=== PATIENT | female | born 1975 | race Caucasian/White ===

== ENCOUNTER → 2017-03-05 | Outpatient (CLI) | payer MEDICAID ==
[~2017-03-05] MED LIST: ANTIVERT25 MG PO; BUSPAR PO; CLONAZEPAM 1 MG1 M1 PO; CLONAZEPAM PO; COMBIVENT INH; DILAUDID 2 MG TA2 MG PO; DILAUDID 4 MG TA4 M1 PO; FLEXERIL PO; FLOVENT HFA 2220 MCG IH; HEADACHE FORMU1 EACH PO; HYDROCHLOROTHIA25 M1 PO; IBUPROFEN 800800 M1 PO; LISINOPRIL10 MG PO; LYRICA100 MG PO; METHADONE HCL 110 M1 PO; METHADONE HCL5 MG PO; NABUMETONE 750750 M1 PO; NORCO 10-325 T1 EAC1 PO; NORCO 10-325 T1 EACH PO; OPANA5 MG PO; PERCOCET 10-321 EAC1 PO; PERCOCET 10-321 EACH PO; PERCOCET 7.5-31 EAC1 PO; POTASSIUM20 PO; PRILOSEC 20 MG20 MG PO; RASPBERRY KETO100 MG PO; RELAFEN500 MG PO; SENNA-S TABLET1 EACH PO; SINGULAIR 10 MG10 M1 PO; ZANAFLEX4 MG PO; imitrex; topiramate
--- NOTE | 2017-03-07 09:59 | PAINCON ---
[address] [address] PAIN MANAGEMENT CONSULTATION Name: MARGOTH CABRAL Room: [facility] Mann#: [id number] Admission: 03/05/17 Attend Phys: Pedro Starr Discharge: Date of : 73 Report #: [id number] THIS REPORT FOR: //name// CC: Sixto Alvarez DATE OF SERVICE: 03/05/2017 HISTORY OF PRESENT ILLNESS: The patient is a 41-year-old female being treated for lumbar radiculopathy status post decompressive laminectomy, morbid obesity, myofascial pain requiring high risk complex medication management. Last seen in the pain clinic on 01/08/2017, continued on baseline medications. We did trigger point injections at that time. The patient returns to pain clinic today noting trigger point injections helped with right back and buttock pain. She has fallen twice in the past month. She has an AFO on the left foot, she states that lack of dorsiflexion in this foot may have contributed to that last fall, which did exacerbat pain in the right leg. She has had chronic left weakness status post her prior surgery. Tender in the low back, right greater than left, a little bit in the SI area as well. Positive MADIHA test bilaterally. Positive distraction and Gaenslen's test. We reviewed the fact that opiate medications are being used to provide analgesia adequate to support activities of daily living, not attempting to achieve a specific pain score on the 0-10 Visual Analog Scale. The current opiate medications are providing sufficient analgesia to allow the patient to participate in activities of daily living. The patient is not exhibiting any aberrant behavior suggestive of drug diversion. The patient is not having any adverse reactions to medications. The patient is not suffering from daytime somnolence or mental acuity changes. The patient is managing opiate-induced constipation with appropriate gdbx-cuy-helzsbm agents and dietary considerations. The patient was counseled on concern for caution with operating a motor vehicle while using opiate medications. A physical exam was performed and the patient's functional status was evaluated. All patients with back pain were advised against the bed rest greater than 4 days and were advised to return to normal activities. Pain score assessment was noted and the treatment plan was reviewed with the patient. All current medications, both prescribed and OTC were reviewed and reconciled on the electronic medical record. Tobacco screening was accomplished and smoking cessation was advised when indicated. BMI was noted and diet/exercise modification was recommended for all patients following outside normal parameters. I reviewed with the patient today their responsibilities to safeguard prescription medications, reviewed their responsibility [place] [address] PAIN MANAGEMENT CONSULTATION Name: MARGOTH CABRAL [id number] Admission: 03/05/17 Attend Phys: Pedro Starr Discharge: Date of : 74 Report #: [id number] only as prescribed by the physician. They are to seek and receive pain medications only from 1 physician group ([facility]). They are to use 1 pharmacy and keep the clinic informed if they change pharmacies. Their responsibilities include making followup visits in a timely fashion and to avoid abrupt discontinuation of medication usage. Their responsibilities further include bringing their medications (bottles from the pharmacy with residual pills) to the visit for possible confirmation of pill counts and the patient understands it is their responsibility to submit to random drug screens to ensure both that the medications prescribed are present, and that no other controlled substances are present. All prescriptions provided today were generated electronically. The patient rates subjective pain score 7 on a VAS. PHYSICAL EXAMINATION: GENERAL: Shows 5 feet 3 inches, 222 pounds female, BMI is 39 kilograms per meter squared. VITAL SIGNS: Blood pressure 134/61, pulse 79, respirations 16. MUSCULOSKELETAL: Rises from chair using armrest. Antalgic gait. Again decreased left dorsiflexion strength. Tender across the SI joints. Lumbar flexion is modestly limited. Positive MADIHA test. Straight leg raise is negative. ASSESSMENT: Symptomatic lumbar radiculopathy status post decompressive laminectomy, neuropathic pain, component of sacroiliac mediated pain at present. We did spend a prolonged visit today, greater than 25 minutes was spent with the patient. We reviewed the opiate consent to treat contract. We did obtain a buccal drug swab today. No aberrant behavior suggestive for drug diversion, simply complying with opiate consent to treat contract, last random drug screen was in April of last year. I talked about core strengthening for sacroiliac-mediated pain. We will tentatively plan on moving forward with bilateral sacroiliac joint injections in 2 weeks if sacroiliac-mediated pain does not improve with conservative care. Continue current medication unchanged including tizanidine 4 mg t.i.d., limit 75 tablets for 30 days. Continue methadone 5 mg 2 in the morning, 1 at noon, 2 at night, limit 150 tablets for 30 days. Consider weaning to 4 tablets a day at next visit. Continue Percocet 10/325 up to 4 tablets a day for breakthrough pain. Discharged in good and stable condition after moderately prolonged visit, [address] [facility] [address] [place] [address] PAIN MANAGEMENT CONSULTATION Name: MARGOTH CABRAL Room: [facility]#: [id number] Admission: 03/05/17 Attend Phys: Pedro Starr Discharge: Date of : 73 Report #: [id number] minutes was spent counseling the patient, reviewing therapeutic options and discussing need for sacroiliac joint injection at next visit. <ELECTRONICALLY SIGNED> By: Jonh Alvarez DO 03/07/17 0959 1216 1942Jonh Alvarez DO /nt
== END ==
LOC: M.PC 02:34
DX: M54.16 Radiculopathy, lumbar region (principal); E66.01 Morbid (severe) obesity due to excess calories; M79.1 Myalgia; M53.3 Sacrococcygeal disorders, not elsewhere classified; Z98.890 Other specified postprocedural states; Z79.899 Other long term (current) drug therapy

== ENCOUNTER → 2017-04-30 | Outpatient (CLI) | payer MEDICAID ==
--- NOTE | 2017-05-07 07:59 | PAINCON ---
[address] [address] PAIN MANAGEMENT CONSULTATION Name: MARGOTH CABRAL Room: [facility]#: [id number] Admission: 04/30/17 Attend Phys: Pedro Starr Discharge: Date of : 74 Report #: [id number] THIS REPORT FOR: //name// CC: Sixto Alvarez HISTORY OF PRESENT ILLNESS: The patient is a 41-year-old female being treated for lumbar radiculopathy, status post decompressive laminectomy, component of myofascial pain, SI-mediated pain, chronic complex medication management. Comorbidity includes morbid obesity, though the patient has lost a great deal of weight. Returns to pain clinic today, last visit was on 03/05/2017. Referred for physical therapy for core strengthening. She does wear an AFO on the left foot. She notes today that she is continuing to increase activity. She has been walking 10-15 minutes at a stretch though this does exacerbate some of the axial back pain and right leg pain. PHYSICAL EXAMINATION: Shows 5 feet 3 inches, 226 pounds female, BMI is 40 kilograms per meter squared. She had a BMI greater than 50 kilograms per meter squared prior to bariatric surgery. Blood pressure 117/67, pulse 71, respirations 16. Rises from chair using armrest. Still has diminished range of motion in the left ankle and foot, wears an AFO. Modestly antalgic gait. Lumbar flexion is limited, diffuse tenderness across the low back. We reviewed the fact that opiate medications are being used to provide analgesia adequate to support activities of daily living, not attempting to achieve a specific pain score on the 0-10 Visual Analog Scale. The current opiate medications are providing sufficient analgesia to allow the patient to participate in activities of daily living. The patient is not exhibiting any aberrant behavior suggestive of drug diversion. The patient is not having any adverse reactions to medications. The patient is not suffering from daytime somnolence or mental acuity changes. The patient is managing opiate-induced constipation with appropriate ilia-qjr-urafddf agents and dietary considerations. The patient was counseled on concern for caution with operating a motor vehicle while using opiate medications. A physical exam was performed and the patient's functional status was evaluated. All patients with back pain were advised against the bed rest greater than 4 days and were advised to return to normal activities. Pain score assessment was noted and the treatment plan was reviewed with the patient. All current medications, both prescribed and OTC were reviewed and reconciled on the electronic medical record. Tobacco screening was accomplished and smoking cessation was advised when indicated. BMI was noted and diet/exercise modification was recommended for all patients following outside normal parameters. I reviewed with the patient today their responsibilities to safeguard prescription medications, reviewed their responsibility [place] [address] PAIN MANAGEMENT CONSULTATION Name: MARGOTH CABRAL Room: [facility] Darnell#: [id number] Admission: 04/30/17 Attend Phys: Pedro Starr Discharge: Date of : 73 Report #: [id number] only as prescribed by the physician. They are to seek and receive pain medications only from 1 physician group ( [facility]). They are to use 1 pharmacy and keep the clinic informed if they change pharmacies. Their responsibilities include making followup visits in a timely fashion and to avoid abrupt discontinuation of medication usage. Their responsibilities further include bringing their medications (bottles from the pharmacy with residual pills) to the visit for possible confirmation of pill counts and the patient understands it is their responsibility to submit to random drug screens to ensure both that the medications prescribed are present, and that no other controlled substances are present. All prescriptions provided today were generated electronically. ASSESSMENT: Symptomatic lumbar radiculopathy, status post decompressive laminectomy, morbid obesity, myofascial pain requiring complex medication management. Again, last random drug screen on 03/05/2017 was positive for prescribed medications and no others. RECOMMENDATION: Discussion with the patient today about therapeutic options. She still is at a supratherapeutic dose of opiate, methadone 5 mg 2 in the morning, 1 at noon and 2 at night, 25 mg roughly equating to about 100 mg of morphine. Percocet 10/325 four a day equating to about another 60 mg of morphine for a total daily dose of 160 mg. We talked at length about desire to keep opiate load under 90 mg of morphine as higher loads are not associated with increased function and are associated with some opiate-induced hyperalgesia. Today, we have elected to continue methadone unchanged, but decrease Percocet from 10 to 7.5/325 product up to 4 a day. Follow up here in 2 months for reevaluation. Continue physical activity, weight loss and core strengthening exercises. Discharged in good and stable condition. Follow up in 2 months for reevaluation. Opiate load decreased from 40 mg oxycodone and 25 mg of methadone to 30 mg of oxycodone with unchanged methadone, decrease his overall opiate load perhaps 10%. <ELECTRONICALLY SIGNED> By: Jonh Alvarez DO 05/07/17 0759 1413 [id number] Alvarez, DO /nt
== END ==
LOC: M.PC 04:53
DX: M54.16 Radiculopathy, lumbar region (principal); E66.01 Morbid (severe) obesity due to excess calories; M79.1 Myalgia; Z79.899 Other long term (current) drug therapy

== ENCOUNTER → 2017-06-25 | Outpatient (CLI) | payer MEDICAID ==
--- NOTE | 2017-06-30 08:35 | PAINCON ---
[address] [address] PAIN MANAGEMENT CONSULTATION Name: MARGOTH CABRAL [id number] Admission: 06/25/17 Attend Phys: Pedro Starr Discharge: Date of : 73 Report #: [id number] THIS REPORT FOR: //name// CC: Sixto Alvarez The patient is a 42-year-old female long known to the pain clinic, typically treated for lumbar radiculopathy status post decompressive laminectomy, chronic left lumbar radicular pain, SI mediated pain requiring complex medication management. She was last seen in the pain clinic on 04/30/2017, continued on baseline medication including methadone 5 mg 2 in the morning, 1 at noon and 2 at night and Percocet 10/325 up to 4 a day. Last visit, we had decreased Percocet from 10 to 7.5/325. She returns to the pain clinic today noting pain has continued to be problematic. Did have a little increase in pain with the opiate reduction, but overall is doing well from her chronic pain standpoint, pain in low back, left buttock and left leg with chronic loss of dorsiflexion in left leg, status post her back surgery in 2009 (fusion L3, L4 and L5). She does note new pain with right radicular pain and she also notes that after she sits for a period of time getting up the right leg feels weak. She has not fallen, but she does use a cane in her right hand (and has since the aforementioned 2009 surgery with chronic left drop foot. The patient rates her subjective pain score 6 on a VAS. PHYSICAL EXAMINATION: Shows 42-year-old female, BMI is 39 kilograms per meter squared. Blood pressure 139/68, pulse 71 and respirations are 18. Again AFO left foot with absent dorsiflexion, otherwise left leg is about 3-4/5 strength. Right leg now; however, does show a little bit of increasing weakness perhaps 3/5 to objective hip flexion and lower extremity extension. Plantar flexion elicits pain. Grossly positive straight leg raise at 30 degrees. Patellar and Achilles reflexes are diminished. Diffuse tenderness across the low back. No discrete trigger points are noted. We reviewed the fact that opiate medications are being used to provide analgesia adequate to support activities of daily living, not attempting to achieve a specific pain score on the 0-10 Visual Analog Scale. The current opiate medications are providing sufficient analgesia to allow the patient to participate in activities of daily living. The patient is not exhibiting any aberrant behavior suggestive of drug diversion. The patient is not having any adverse reactions to medications. The patient is not suffering from daytime somnolence or mental acuity changes. The patient is managing opiate-induced constipation with appropriate evxd-izt-mifiulk agents and dietary considerations. The patient was counseled on concern for caution with operating a motor vehicle [place] [address] PAIN MANAGEMENT CONSULTATION Name: MARGOTH CABRAL [id number] Admission: 06/25/17 Attend Phys: Pedro Starr Discharge: Date of : 73 Report #: [id number] A physical exam was performed and the patient's functional status was evaluated. All patients with back pain were advised against the bed rest greater than 4 days and were advised to return to normal activities. Pain score assessment was noted and the treatment plan was reviewed with the patient. All current medications, both prescribed and OTC were reviewed and reconciled on the electronic medical record. Tobacco screening was accomplished and smoking cessation was advised when indicated. BMI was noted and diet/exercise modification was recommended for all patients following outside normal parameters. I reviewed with the patient today their responsibilities to safeguard prescription medications, reviewed their responsibility to utilize medications only as prescribed by the physician. They are to seek and receive pain medications only from 1 physician group ( [facility]). They are to use 1 pharmacy and keep the clinic informed if they change pharmacies. Their responsibilities include making followup visits in a timely fashion and to avoid abrupt discontinuation of medication usage. Their responsibilities further include bringing their medications (bottles from the pharmacy with residual pills) to the visit for possible confirmation of pill counts and the patient understands it is their responsibility to submit to random drug screens to ensure both that the medications prescribed are present, and that no other controlled substances are present. All prescriptions provided today were generated electronically. ASSESSMENT #1: Chronic axial back pain, lumbar radiculopathy, status post decompressive laminectomy with chronic neuropathic pain, chronic left drop foot requiring complex medication management. RECOMMENDATIONS: Discussion with the patient today about therapeutic option. We have elected to try and continue opiate wean, continue Percocet 7.5/325. I suggest she drop methadone from 5 tablets a day to 1 in the morning, 1 at noon and 2 at night; however, I have enabled her to continue current opiate load with a prescription generated for methadone 5 mg, dispensed 150 tablets, directions 1-2 in the morning, 1 at noon and 2 at night. On 4-week release prescription, if she is able to drop down to 4 a day, we will have her try and drop 1 Percocet. We will have her follow up in 2 months for reevaluation and will bring pills in for a pill count at that time. I did inform the patient that I will be leaving the practice. We will need to find a pain clinic physician on her insurance panel to continue medication. ASSESSMENT #2: Acute exacerbation of lumbar radiculopathy with new right L4-L5 radicular pain pattern. RECOMMENDATION: Epidural injection under fluoroscopy today. PROCEDURE: Lumbar epidural [place] [address] PAIN MANAGEMENT CONSULTATION Name: MARGOTH CABRAL Room: [facility]#: [id number] Admission: 06/25/17 Attend Phys: Pedro Starr Discharge: Date of : 73 Report #: [id number] PROCEDURE NOTE: After both written and informed consent to include risk of spinal cord damage, increased pain, weakness and dural puncture, the patient was taken to the fluoroscopy suite, placed in the prone position. After sterile prep and drape, a skin wheal with lidocaine was raised. A 22-gauge epidural Tuohy needle was inserted in the midline at L5-S1 with good loss to resistance. Negative aspiration for cerebrospinal fluid or blood was noted. Then 1 mL of Omnipaque under biplanar fluoroscopy showed good spread within the epidural space. This was followed with 80 mg of triamcinolone plus 1 mL of 1.5% preservative-free Xylocaine, 0.5 mL Xylocaine was then injected to flush the needle; it was removed. The patient was monitored for an appropriate period of time and discharged in good and stable condition. <ELECTRONICALLY SIGNED> By: Jonh Alvarez DO 06/30/17 0835 1417 [id number] Alvarez DO /nt
== END | disposition home or self-care (01) ==
LOC: M.PC 03:01
DX: M54.16 Radiculopathy, lumbar region (principal); G89.29 Other chronic pain; M21.372 Foot drop, left foot; E66.01 Morbid (severe) obesity due to excess calories; Z98.890 Other specified postprocedural states; Z79.891 Long term (current) use of opiate analgesic; Z68.39 Body mass index [BMI] 39.0-39.9, adult

== ENCOUNTER → 2017-08-20 | Outpatient (CLI) | payer MEDICAID ==
--- NOTE | 2017-08-21 07:27 | PAINCON ---
[facility] [address] [place] [address] PAIN MANAGEMENT CONSULTATION Name: MARGOTH TAVERAS [id number] Admission: 08/20/17 Attend Phys: Pedro Starr Discharge: Date of : 73 Report #: [id number] THIS REPORT FOR: //name// CC: Sixto Alvarez DATE OF SERVICE: 08/20/2017 The patient is a 42-year-old female treated for symptomatic lumbar radiculopathy status post decompressive laminectomy, SI mediated pain, requiring complex medication management. Last seen in the Pain Clinic on 06/25/2017. Continued on methadone 5 mg, had been taking 5 a day, 2 in the morning, 1 at noon, and 2 at night. She has decreased to 2 tablets b.i.d. Continued Percocet 7.5/325 four a day (decreased from Percocet 10/325 four a day at prior visit). The patient had lumbar decompressive laminectomy [place] [address] Armas at [facility]. She is left with chronic left dropped foot. She has had an AFO since. She has been actively losing weight following bariatric surgery a few years ago. PHYSICAL EXAMINATION: Shows pleasant 42-year-old female, 5 feet 3 inches, 214 pounds, BMI is 37.8 kg/m2. Blood pressure 112/86, pulse 79, respirations 16. AFO on the left foot. She is having some increasing pain in the right leg down to the ankle and foot. We had tried a single epidural injection, L5-S1 midline epidural injection at last visit with really limited efficacy. The patient uses a cane to balance. She has pain getting up from sitting and when standing. She rates the pain 10 on a VAS. As noted, she has continued to lose weight. She is down to about 9 pounds since our last visit. The patient describes burning dysesthesia in the right lateral thigh, somewhat in L4 distribution. She fell one week ago. She states her right leg gave out. ASSESSMENT: Symptomatic lumbar radiculopathy by clinical exam and history, ongoing exacerbation of pain. The patient has an L4-L5 fusion. RECOMMENDATIONS: Discussed with the patient today about therapeutic options. I discussed with the patient that I am leaving the area and unfortunately Dr. Parmar is not taking any new Medicaid patients. I have taken the liberty of writing for 3 months of her current medication including methadone 10 mg 2 tablets b.i.d. (10 mg), Percocet 7.5/325 one tablet up to 4 times a day. Lyrica 100 mg 3 tablets a day, 1 in the morning, 2 at night. She prior had failed gabapentin. She does think that the Ly[place] [address] PAIN MANAGEMENT CONSULTATION Name: MARGOTH TAVERAS Room: [facility] Darnell#: [id number] Admission: 08/20/17 Attend Phys: Pedro Starr Discharge: Date of : 73 Report #: [id number] burning dysesthesia and chronic pain. We will get an MRI with and without contrast due to increasing right L4 radicular pain. We will refer to Neurosurgery at [facility] for consideration for revision of decompressive laminectomy. We will have the patient follow up with her primary care physician regarding referral to another pain physician. She has been an excellant patient, no behaviour suggestive for drug diversion; random drug screens have been appropriate; she is NOT a patient who asks for "early release" of her medications. I am leaving the practice area and I am simply asking her primary physician to assist Ms. Taveras with finding another pain physician in the area who accepts her insurance. The patient was discharged in good and stable condition after prolonged visit. We spent approximately 30 minutes together today reviewing therapeutic options, discussing transition of care and need for diagnostic findings and referral to Neurosurgery. <ELECTRONICALLY SIGNED> By: Jonh Alvarez DO 08/21/17 0727 1313 [id number] Alvarez DO /radha
== END ==
LOC: M.PC 05:00
DX: M54.16 Radiculopathy, lumbar region (principal); Z79.899 Other long term (current) drug therapy

== ENCOUNTER → 2017-09-09 | Outpatient (CLI) | payer MEDICAID | LOC: M.MRI 12:54 | DX: M47.816 Spondylosis without myelopathy or radiculopathy, lumbar region (principal); M43.26 Fusion of spine, lumbar region ==

== ENCOUNTER → 2018-05-13 | Outpatient (CLI) | payer MEDICAID | LOC: M.LAB 11:56 → M.CT 13:00 | DX: M47.817 Spondylosis without myelopathy or radiculopathy, lumbosacral region (principal); M51.27 Other intervertebral disc displacement, lumbosacral region; M51.36 Other intervertebral disc degeneration, lumbar region; M43.26 Fusion of spine, lumbar region ==